=== PATIENT | male | born 1975 | race Caucasian/White ===

== ENCOUNTER 2016-08-23 23:04 | Emergency (ER) | payer OTHER ==
[~2016-08-23 23:04] MED LIST: LORT5TAB PO; SULF-154 PO; Z.0.NO CURRENT MEDS
[2016-08-23 23:10] VITALS: BP 154/60; PULSE 85; RESP 18; TEMP 98.3; O2SAT 97
--- NOTE | 2016-08-23 23:33 | PD ---
HPI Chief Complaint: Alcohol/Drug Intoxication Time Seen by Provider: 23:20 Travel History International Travel<30 days: No Contact w/Intl Traveler<30days: No Traveled to known affect area: No History of Present Illness HPI This is a 41-year-old male who presents under a [place] act initiated by the Police Department. The patient was in a hotel room screening after smoking something. The patient reports that he drinks several beers today and smokes marijuana. He denies any other drug use. He drinks on a daily basis. He denies any injuries. He denies any pain. He has no complaints at this time. FORMERLY [facility], LATER [facility] Past Medical History Medical History: Denies Significant Hx Diminished Hearing: No Past Surgical History Surgical History: No Previous Surgery Social History Alcohol Use: Yes (DAILY) Tobacco Use: Yes (1 PPD) Substance Use: Yes (COUGH SYRUP/WEED) Allergies-Medications (Allergen,Severity, Reaction): Coded Allergies: No Known Allergies (Verified , 03/18/10) Reported Meds & Prescriptions Reported Meds & Active Scripts Active Lortab 5/500 (Acetaminophen/Hydrocodone Bitart) 5 Mg/500 Mg Tab 1 Tab PO Q6HPRN Septra Ds (Trimethoprim/Sulfamethoxazole) Tab 1 Tab PO BID 10 Days Reported No Current Meds (Miscellaneous Medication) Misc Review of Systems Except as stated in HPI: all other systems reviewed are Neg Physical Exam Narrative GENERAL: Well-developed well-nourished male in no acute distress SKIN: Warm and dry. HEAD: Atraumatic. Normocephalic. EYES: Pupils equal and round. No scleral icterus. No injection or drainage. ENT: No nasal bleeding or discharge. Mucous membranes pink and moist. NECK: Trachea midline. No JVD. CARDIOVASCULAR: Regular rate and rhythm. No murmur appreciated. RESPIRATORY: No accessory muscle use. Clear to auscultation. Breath sounds equal bilaterally. GASTROINTESTINAL: Abdomen soft, non-tender, nondistended. MUSCULOSKELETAL: No obvious deformities. NEUROLOGICAL: Awake and alert. No obvious cranial nerve deficits. Motor grossly within normal limits. Mildly slurred speech. Ambulatory around the room with no ataxia. PSYCHIATRIC: Appropriate mood and affect; insight and judgment normal. Data Data Last Documented VS Vital Signs Date Time Temp Pulse Resp B/P Pulse Ox O2 Delivery O2 Flow Rate FiO2 08/23/16 23:12 Room Air 08/23/16 23:10 98.3 85 18 154/60 97 MDM Medical Decision Making Medical Screen Exam Complete: Yes Emergency Medical Condition: Yes Medical Record Reviewed: Yes Differential Diagnosis Polysubstance abuse, alcohol intoxication, acute psychosis Narrative Course 41-year-old male was brought in under a Marchman act for intoxication. He has no medical complaints. He is awake, alert, interactive. He is ambulatory with a steady gait. After being discharged he plans on going home to his apartment. The patient will remain here until he is clinically sober and then he will be discharged. Diagnosis Primary Impression: Polysubstance abuse Referrals: [facility]Other Pt SpecificInfo: No Change to Meds Disposition: DISCHARGE HOME Condition: Stable Uri Oliveira Aug 23, 2016 23:33
== END 2016-08-24 00:51 | disposition home or self-care (01) ==
LOC: NEPA 23:04
DX: F19.10 Other psychoactive substance abuse, uncomplicated (principal); F17.210 Nicotine dependence, cigarettes, uncomplicated; F12.90 Cannabis use, unspecified, uncomplicated; F10.129 Alcohol abuse with intoxication, unspecified
CPT/HCPCS: 99284

== ENCOUNTER 2016-12-09 05:20 | Emergency (ER) | payer SELFPAY ==
[~2016-12-09] VITALS: Ht 177.8 cm; Wt 72.0 kg
[2016-12-09] MEDS ORDERED: SODIUM CHLOR 0.9% 1000 ML INJ 1,000 ML IV ONE (05:30)
[2016-12-09] MEDS ORDERED: TETANUS/DIPHTHERIA TOXOID ADULT 0.5 ML VIAL IM ONE (05:30)
[2016-12-09 05:35] VITALS: BP 133/93; PULSE 71; RESP 18; TEMP 98.4; O2SAT 96
--- NOTE | 2016-12-09 05:42 | PD ---
HPI Chief Complaint: Psychiatric Symptoms Time Seen by Provider: 05:26 Travel History International Travel<30 days: No Contact w/Intl Traveler<30days: No Traveled to known affect area: No History of Present Illness HPI This is a 41-year-old male who has a history of alcohol abuse, who presents today under Walsh act after he reportedly smashed his head against rocks. Patient denies this. There were witnesses who stated to the police that he had made reference that he wanted to hurt himself earlier in the day. This was secondary to his girlfriend leaving him. The patient emphatically denies this at this time. The patient does give history that he's been drinking "a lot". He states his last tetanus shot was 5 years ago however I see no record of this in the medical records. He reports pain in his head. There are no other reports of injury. FORMERLY [facility], [facility] Past Medical History Diminished Hearing: No Social History Alcohol Use: Yes (DAILY) Tobacco Use: Yes (1 PPD) Substance Use: Yes (COUGH SYRUP/WEED) Allergies-Medications (Allergen,Severity, Reaction): Coded Allergies: No Known Allergies (Verified , 12/09/16) Reported Meds & Prescriptions Reported Meds & Active Scripts Active No Active Prescriptions or Reported Medications Review of Systems Except as stated in HPI: all other systems reviewed are Neg Eyes: Positive: Other, No: Diploplia, Blurred Vision HENT: Positive: Headaches (laceration above right eye), No: Lightheadedness, Neck Pain Cardiovascular: No: Chest Pain or Discomfort, Palpitations Respiratory: No: Cough, Shortness of Breath Gastrointestinal: No: Nausea, Vomiting Musculoskeletal: No: Weakness Neurologic: Positive: Headache (laceration above right eye and forehead), Slurred Speech (patient admits to drinking a large amount of alcohol), No: Weakness, Dizziness, Focal Abnormalities, Incontinence Psychiatric: Positive: Substance Abuse, No: Suicidal Ideations (he denies), Homicidal Ideation Physical Exam Narrative GENERAL: Well-nourished, well-developed patient, in no acute distress. The patient does appear to be intoxicated and has a odor, and associated with alcohol to his breath. SKIN: Focused skin assessment warm/dry. HEAD: Normocephalic. The patient has a stellate laceration to his right eyebrow. EYES: No scleral icterus. No injection or drainage. NECK: Supple, trachea midline. Initially in c-collar however he removed it when he arrived. CARDIOVASCULAR: Regular rate and rhythm without murmurs, gallops, or rubs. RESPIRATORY: Breath sounds equal bilaterally. No accessory muscle use. GASTROINTESTINAL: Abdomen soft, non-tender, nondistended. MUSCULOSKELETAL: No cyanosis, or edema. No deformities. NEUROLOGICAL: Awake and intoxicated. Cranial nerves II through XII intact. Motor and sensory grossly within normal limits. Five out of 5 muscle strength in all muscle groups. Slurred speech consistent with history of alcohol use. Data Data Last Documented VS Vital Signs Date Time Temp Pulse Resp B/P Pulse Ox O2 Delivery O2 Flow Rate FiO2 12/09/16 05:35 98.4 71 18 133/93 96 Orders Complete Blood Count With Diff (12/09/16 05:26) Basic Metabolic Panel (Bmp) (12/09/16 05:26) Ct Brain W/O Iv Contrast(Rout) (12/09/16 05:26) Iv Access Insert/Monitor (12/09/16 05:26) Ct Cerv Spine W/O Contrast (12/09/16 05:26) Sodium Chlor 0.9% 1000 Ml Inj (Ns 1000 M (12/09/16 05:30) Psych Screen (12/09/16 05:30) Tetanus/Diphtheria Tox Adult (Tetanus/Di (12/09/16 05:30) Labs Laboratory Tests Test 12/09/16 05:45 White Blood Count 7.5 TH/MM3 Red Blood Count 4.76 MIL/MM3 Hemoglobin 14.8 GM/DL Hematocrit 43.9 % Mean Corpuscular Volume 92.3 FL Mean Corpuscular Hemoglobin 31.2 PG Mean Corpuscular Hemoglobin 33.8 % Concent Red Cell Distribution Width 14.2 % Platelet Count 252 TH/MM3 Mean Platelet Volume 7.4 FL Neutrophils (%) (Auto) 50.9 % Lymphocytes (%) (Auto) 35.1 % Monocytes (%) (Auto) 10.7 % Eosinophils (%) (Auto) 2.3 % Basophils (%) (Auto) 1.0 % Neutrophils # (Auto) 3.8 TH/MM3 Lymphocytes # (Auto) 2.6 TH/MM3 Monocytes # (Auto) 0.8 TH/MM3 Eosinophils # (Auto) 0.2 TH/MM3 Basophils # (Auto) 0.1 TH/MM3 CBC Comment DIFF FINAL Differential Comment Sodium Level 144 MEQ/L Potassium Level 4.0 MEQ/L Chloride Level 111 MEQ/L Carbon Dioxide Level 23.4 MEQ/L Anion Gap 10 MEQ/L Blood Urea Nitrogen 7 MG/DL Creatinine 0.67 MG/DL Estimat Glomerular Filtration 129 ML/MIN Rate Random Glucose 100 MG/DL Calcium Level 8.3 MG/DL MDM Medical Decision Making Medical Screen Exam Complete: Yes Emergency Medical Condition: Yes Differential Diagnosis Right eyebrow laceration versus intracranial hemorrhage versus cervical spine injury versus EtOH intoxication Narrative Course This is a 41-year-old male who presents under [employer] act for reportedly wanting to harm himself. The patient apparently struck his head against rocks. There was report that he had told friends that he wanted to hurt himself secondary to his girlfriend leaving him. The patient has a laceration above his right eyebrow. He has no other injuries. CT brain and cervical spine show no evidence of acute process. Electrolytes are within normal limits. He has been given tetanus immunization. His lack is been repaired by Sandra Quezada DNP. He is currently under Walsh act in a psychiatric screening has been ordered. He appears intoxicated and admits to drinking alcohol. Serum alcohol level and tox screen are pending. He'll be medically cleared by this physician for psychiatric evaluation. Diagnosis Primary Impression: Laceration of right eyebrow Additional Impressions: Polysubstance abuse Walsh act secondary to reported statements of self-harm. medically clear Scripts No Active Prescriptions or Reported Meds Yasir Sandhu MD December 09, 2016 05:42
--- NOTE | 2016-12-09 05:45 | RADRPT ---
EXAM DATE/TIME: 12/09/2016 05:35 [facility] COMPARISON: No previous studies available for comparison. INDICATIONS : Trauma. Unknown head injury. RADIATION DOSE: 35.02 CTDIvol (mGy) MEDICAL HISTORY : None SURGICAL HISTORY : None. ENCOUNTER: Initial ACUITY: 1 day PAIN SCALE: 5/10 LOCATION: cranial TECHNIQUE: Multiple contiguous axial images were obtained of the head. Using automated exposure control and adj ustment of the mA and/or kV according to patient size, radiation dose was kept as low as reasonably a chievable to obtain optimal diagnostic quality images. FINDINGS: CEREBRUM: The ventricles are normal for age. No evidence of midline shift, mass lesion, hemorrhage or acute in farction. No extra-axial fluid collections are seen. POSTERIOR FOSSA: The cerebellum and brainstem are intact. The 4th ventricle is midline. The cerebellopontine angle i s unremarkable. EXTRACRANIAL: The visualized portion of the orbits is intact. Soft swelling tissue over the right forehead. SKULL: The calvaria is intact. No evidence of skull fracture. CONCLUSION: Unremarkable CT scan of the brain Livan Taylor MD on December 09, 2016 at 5:42 Board Certified Radiologist. This report was verified electronically.
[2016-12-09 05:58] LABS: AUTOMATED NEUTROPHIL # 3.8 TH/MM3 (1.8-7.7); BASOPHIL # 0.1 TH/MM3 (0-0.2); EOSINOPHIL # 0.2 TH/MM3 (0-0.4); EOSINOPHIL % 2.3 % (0.0-4.0); HEMATOCRIT 43.9 % (39.0-51.0); HEMO FLAGS DIFF FINAL; LYMPH % 35.1 % (9.0-44.0); LYMPHOCYTE # 2.6 TH/MM3 (1.0-4.8); MEAN CELL VOLUME 92.3 FL (80.0-100.0); MEAN CORPUSCULAR HEMOGLOBIN 31.2 PG (27.0-34.0); MEAN CORPUSCULAR HGB CONC 33.8 % (32.0-36.0); MONO % 10.7 % (0.0-8.0); NEUT % 50.9 % (16.0-70.0); PLATELET COUNT 252 TH/MM3 (150-450); RED BLOOD COUNT 4.76 MIL/MM3 (4.50-5.90); RED CELL DISTRIBUTION WIDTH 14.2 % (11.6-17.2); WHITE BLOOD COUNT 7.5 TH/MM3 (4.0-11.0)
--- NOTE | 2016-12-09 05:58 | RADRPT ---
EXAM DATE/TIME: 12/09/2016 05:35 [facility] COMPARISON: No previous studies available for comparison. INDICATIONS : Trauma. Unknown head injury. Neck pain. RADIATION DOSE: 15.39 CTDIvol (mGy) MEDICAL HISTORY : None SURGICAL HISTORY : None. ENCOUNTER: Initial ACUITY: 1 day PAIN SCALE: 5/10 LOCATION: neck TECHNIQUE: Volumetric scanning of the cervical spine was performed. Multiplanar reconstructions in the sagittal, coronal and oblique axial planes were performed. Using automated exposure control and adjustment o f the mA and/or kV according to patient size, radiation dose was kept as low as reasonably achievable to obtain optimal diagnostic quality images. FINDINGS: VERTEBRAE: Normal vertebral body height. No acute bony fracture. Mild degenerative changes at C5-6. ALIGNMENT: No evidence of subluxation. C2-C3: The bony spinal canal is normal in size. No evidence of disc bulge or herniation. The neural forami na are bilaterally patent. C3-C4: The bony spinal canal is normal in size. No evidence of disc bulge or herniation. The neural forami na are bilaterally patent. C4-C5: The bony spinal canal is normal in size. No evidence of disc bulge or herniation. The neural forami na are bilaterally patent. C5-C6: Diffuse broad-based bulging. The neural foramina appear patent. C6-C7: The bony spinal canal is normal in size. No evidence of disc bulge or herniation. The neural forami na are bilaterally patent. C7-T1: The bony spinal canal is normal in size. No evidence of disc bulge or herniation. The neural forami na are bilaterally patent. CONCLUSION: 1. No acute bony fracture. 2. Diffuse broad-based bulging at C5-6 along with some focal bony degenerative changes. Livan Taylor MD on December 09, 2016 at 5:54 Board Certified Radiologist. This report was verified electronically.
[2016-12-09 06:23] LABS: BICARBONATE 23.4 MEQ/L (21.0-32.0)
--- NOTE | 2016-12-09 06:48 | PD ---
Physical Exam Time Seen by Provider: 06:46 Data Data Last Documented VS Vital Signs Date Time Temp Pulse Resp B/P Pulse Ox O2 Delivery O2 Flow Rate FiO2 12/09/16 05:35 98.4 71 18 133/93 96 Orders Complete Blood Count With Diff (12/09/16 05:26) Basic Metabolic Panel (Bmp) (12/09/16 05:26) Ct Brain W/O Iv Contrast(Rout) (12/09/16 05:26) Iv Access Insert/Monitor (12/09/16 05:26) Ct Cerv Spine W/O Contrast (12/09/16 05:26) Sodium Chlor 0.9% 1000 Ml Inj (Ns 1000 M (12/09/16 05:30) Psych Screen (12/09/16 05:30) Tetanus/Diphtheria Tox Adult (Tetanus/Di (12/09/16 05:30) Drug Screen, Random Urine (12/09/16 06:37) Alcohol (Ethanol) (12/09/16 06:37) Labs Laboratory Tests Test 12/09/16 05:45 White Blood Count 7.5 TH/MM3 Red Blood Count 4.76 MIL/MM3 Hemoglobin 14.8 GM/DL Hematocrit 43.9 % Mean Corpuscular Volume 92.3 FL Mean Corpuscular Hemoglobin 31.2 PG Mean Corpuscular Hemoglobin 33.8 % Concent Red Cell Distribution Width 14.2 % Platelet Count 252 TH/MM3 Mean Platelet Volume 7.4 FL Neutrophils (%) (Auto) 50.9 % Lymphocytes (%) (Auto) 35.1 % Monocytes (%) (Auto) 10.7 % Eosinophils (%) (Auto) 2.3 % Basophils (%) (Auto) 1.0 % Neutrophils # (Auto) 3.8 TH/MM3 Lymphocytes # (Auto) 2.6 TH/MM3 Monocytes # (Auto) 0.8 TH/MM3 Eosinophils # (Auto) 0.2 TH/MM3 Basophils # (Auto) 0.1 TH/MM3 CBC Comment DIFF FINAL Differential Comment Sodium Level 144 MEQ/L Potassium Level 4.0 MEQ/L Chloride Level 111 MEQ/L Carbon Dioxide Level 23.4 MEQ/L Anion Gap 10 MEQ/L Blood Urea Nitrogen 7 MG/DL Creatinine 0.67 MG/DL Estimat Glomerular Filtration 129 ML/MIN Rate Random Glucose 100 MG/DL Calcium Level 8.3 MG/DL [facility] Medical Record Reviewed: Yes Supervised Visit with CIERRA: No Procedures Procedure Narrative LACERATION LOCATION: R eyebrow LENGTH: 3cn stellate NUMBER OF STITCHES/TIMOTHY: 8 sutures REPAIR: The area of the laceration was prepped with Betadine and sterilely draped. The laceration was infiltrated with 1 % xylocaine. The wound was copiously irrigated and explored without evidence of foreign body, tendon injury or neurovascular injury. The wound was closed using 5-0 prolene. This was a single layer repair. A sterile dressing was applied. The patient was advised to keep the dressing clean and dry. Patient tolerated the procedure well. Diagnosis Primary Impression: Laceration of right eyebrow Additional Impressions: Walsh act secondary to reported statements of self-harm. Polysubstance abuse medically clear Scripts No Active Prescriptions or Reported Meds Condition: Sandra Christiansen December 09, 2016 06:48
[2016-12-09 07:14] LABS: AMPHETAMINE, URINE NEG (NEG); BARBITURATES, URINE NEG (NEG); COCAINE, URINE NEG (NEG)
[2016-12-09 11:10] VITALS: BP 146/74
[2016-12-09 11:15] VITALS: BP 111/77; PULSE 76; RESP 18; TEMP 97.9; O2SAT 95
[2016-12-09 14:30] VITALS: BP 138/83; PULSE 93; RESP 20
[2016-12-09 20:35] VITALS: BP 141/82; PULSE 86; RESP 18; O2SAT 96
== END 2016-12-09 20:45 ==
LOC: NEPE 05:20 → NEPJ 20:45
DX: S01.111A Laceration without foreign body of right eyelid and periocular area, initial encounter (principal); F10.10 Alcohol abuse, uncomplicated; F17.210 Nicotine dependence, cigarettes, uncomplicated; F19.10 Other psychoactive substance abuse, uncomplicated; Z23 Encounter for immunization; W22.8XXA Striking against or struck by other objects, initial encounter
CPT/HCPCS: 12013; 70450; 72125; 80048; 80307; 85025; 90471; 90714; 99285; J7030

== ENCOUNTER 2017-01-10 16:15 | Emergency (ER) | payer SELFPAY ==
[~2017-01-10] VITALS: Ht 177.8 cm; Wt 75.0 kg
[2017-01-10 16:39] VITALS: BP 104/57; PULSE 97; RESP 13; TEMP 98.6; O2SAT 97
--- NOTE | 2017-01-10 16:39 | PD ---
HPI Chief Complaint: Hand pain. Time Seen by Provider: 16:35 Travel History International Travel<30 days: No Contact w/Intl Traveler<30days: No History of Present Illness HPI Patient is a 41-year-old male presents emergency department for evaluation of left hand pain. Patient states he thinks he was stung by a puffer fish 2 days ago. Patient states he was drinking heavily yesterday but hasn't had a drop to drink today. Patient states she's feeling very tired. He denies any chest pain shortness of breath abdominal pain nausea vomiting headache or focalized weakness. States symptoms been gradually worsening over the past 2 days. PFSH Past Medical History Diminished Hearing: No Social History Alcohol Use: Yes (DAILY) Tobacco Use: Yes (1 PPD) Substance Use: Yes (ETOH 1/5 vodka + 4-8 beers daily; 1 ppd smoker) Allergies-Medications (Allergen,Severity, Reaction): Coded Allergies: No Known Allergies (Verified , 12/09/16) Reported Meds & Prescriptions Reported Meds & Active Scripts Active No Active Prescriptions or Reported Medications Review of Systems Except as stated in HPI: all other systems reviewed are Neg Physical Exam Narrative GENERAL: Well-developed, well-nourished, unkempt, appears intoxicated. SKIN: Focused skin assessment warm/dry. Clubbing of the digits, no swelling of the hands or forearms, there is a small abrasion over the hand on the right, no bony tenderness. Highly inconsistent with marine life sting. HEAD: Atraumatic. Normocephalic. EYES: Pupils equal and round. No scleral icterus. No injection or drainage. ENT: No nasal bleeding or discharge. Mucous membranes pink and moist. NECK: Trachea midline. No JVD. CARDIOVASCULAR: Regular rate and rhythm. No murmur appreciated. RESPIRATORY: No accessory muscle use. Clear to auscultation. Breath sounds equal bilaterally. GASTROINTESTINAL: Abdomen soft, non-tender, nondistended. Hepatic and splenic margins not palpable. MUSCULOSKELETAL: No obvious deformities. No clubbing. No cyanosis. No edema. NEUROLOGICAL: Awake and alert. No obvious cranial nerve deficits. Motor grossly within normal limits. Normal speech. PSYCHIATRIC: Appropriate mood and affect; insight and judgment normal. Data Data Last Documented VS Vital Signs Date Time Temp Pulse Resp B/P Pulse Ox O2 Delivery O2 Flow Rate FiO2 01/10/17 18:22 89 18 104/63 98 Room Air 01/10/17 16:39 98.6 Orders Complete Blood Count With Diff (01/10/17 16:37) Comprehensive Metabolic Panel (01/10/17 16:37) Drug Screen, Random Urine (01/10/17 16:37) Alcohol (Ethanol) (01/10/17 16:37) Salicylates (Aspirin) (01/10/17 16:37) Tylenol (Acetaminophen) (01/10/17 16:37) Thiamine Inj (Thiamine Inj) (01/10/17 18:15) Calcium Gluconate Inj (Calcium Gluconate (01/10/17 18:30) Electrocardiogram (01/10/17 ) Labs Laboratory Tests Test 01/10/17 01/10/17 16:49 17:25 White Blood Count 14.5 TH/MM3 Red Blood Count 4.95 MIL/MM3 Hemoglobin 14.9 GM/DL Hematocrit 45.5 % Mean Corpuscular Volume 92.0 FL Mean Corpuscular Hemoglobin 30.1 PG Mean Corpuscular Hemoglobin 32.8 % Concent Red Cell Distribution Width 14.4 % Platelet Count 199 TH/MM3 Mean Platelet Volume 8.5 FL Neutrophils (%) (Auto) 90.0 % Lymphocytes (%) (Auto) 5.8 % Monocytes (%) (Auto) 3.9 % Eosinophils (%) (Auto) 0.1 % Basophils (%) (Auto) 0.2 % Neutrophils # (Auto) 13.1 TH/MM3 Lymphocytes # (Auto) 0.8 TH/MM3 Monocytes # (Auto) 0.6 TH/MM3 Eosinophils # (Auto) 0.0 TH/MM3 Basophils # (Auto) 0.0 TH/MM3 CBC Comment DIFF FINAL Differential Comment Sodium Level 141 MEQ/L Potassium Level 4.7 MEQ/L Chloride Level 106 MEQ/L Carbon Dioxide Level 18.7 MEQ/L Anion Gap 16 MEQ/L Blood Urea Nitrogen 17 MG/DL Creatinine 0.95 MG/DL Estimat Glomerular Filtration 87 ML/MIN Rate Random Glucose 170 MG/DL Calcium Level 7.4 MG/DL Protein Corrected Calcium 7.1 MG/DL Total Bilirubin 0.4 MG/DL Aspartate Amino Transf 104 U/L (AST/SGOT) Alanine Aminotransferase 87 U/L (ALT/SGPT) Alkaline Phosphatase 122 U/L Total Protein 7.8 GM/DL Albumin 3.1 GM/DL Salicylates Level 3.9 MG/DL Acetaminophen Level LESS THAN 2.0 MCG/ML Ethyl Alcohol Level 205 MG/DL Urine Opiates Screen NEG Urine Barbiturates Screen NEG Urine Amphetamines Screen NEG Urine Benzodiazepines Screen NEG Urine Cocaine Screen NEG Urine Cannabinoids Screen POS [facility] Medical Decision Making Medical Screen Exam Complete: Yes Emergency Medical Condition: Yes Differential Diagnosis Alcohol intoxication, poor social circumstance, electrolyte abnormality, dehydration. Narrative Course Patient roomed in the emergency department, according to EMS blood sugar was somewhat low 58, he did receive some dextrose orally in route. Patient was also given thiamine in the emergency department, labs return and do show some hypocalcemia and he was given 2 g of calcium gluconate. Patient had an EKG checked by Dr. Hernandez shortly after shift change. Dr. Hernandez follow-up EKG and disposition the patient properly. Diagnosis Primary Impression: Alcohol intoxication Qualified Code: F10.920 - Alcohol intoxication, uncomplicated Scripts No Active Prescriptions or Reported Meds Condition: Stable Davidson No MD Jan 10, 2017 16:39
[2017-01-10 17:38] LABS: AUTOMATED NEUTROPHIL # 13.1 TH/MM3 (1.8-7.7); BASOPHIL % 0.2 % (0.0-2.0); EOSINOPHIL % 0.1 % (0.0-4.0); HEMATOCRIT 45.5 % (39.0-51.0); HEMO FLAGS DIFF FINAL; LYMPH % 5.8 % (9.0-44.0); LYMPHOCYTE # 0.8 TH/MM3 (1.0-4.8); MEAN CORPUSCULAR HEMOGLOBIN 30.1 PG (27.0-34.0); MEAN CORPUSCULAR HGB CONC 32.8 % (32.0-36.0); MONO % 3.9 % (0.0-8.0); PLATELET COUNT 199 TH/MM3 (150-450); RED BLOOD COUNT 4.95 MIL/MM3 (4.50-5.90); RED CELL DISTRIBUTION WIDTH 14.4 % (11.6-17.2); WHITE BLOOD COUNT 14.5 TH/MM3 (4.0-11.0)
[2017-01-10 17:55] LABS: ALKALINE PHOSPHATASE 122 U/L (45-117); ALT (GPT) 87 U/L (12-78); ANION GAP 16 MEQ/L (5-15); AST (GOT) 104 U/L (15-37); BICARBONATE 18.7 MEQ/L (21.0-32.0); BLOOD UREA NITROGEN 17 MG/DL (7-18); CHLORIDE 106 MEQ/L (98-107); GLOMERULAR FILTRATION RATE 87 ML/MIN (>89); SODIUM (NA) 141 MEQ/L (136-145); TOTAL BILIRUBIN ADULT 0.4 MG/DL (0.2-1.0)
[2017-01-10 17:58] LABS: ACETAMINOPHEN LESS THAN 2.0 MCG/ML (10.0-30.0); POTASSIUM 4.7 MEQ/L (3.5-5.1)
[2017-01-10] MEDS ORDERED: THIAMINE INJ 100 MG in SODIUM CHLORIDE 0.9% INJ 100 ML IV ONE (18:15)
[2017-01-10 18:20] LABS: AMPHETAMINE, URINE NEG (NEG); BARBITURATES, URINE NEG (NEG); COCAINE, URINE NEG (NEG)
[2017-01-10 18:22] VITALS: BP 104/63; PULSE 89; RESP 18; O2SAT 98
[2017-01-10] MEDS ORDERED: CALCIUM GLUCONATE INJ 2 GM in DEXTROSE 5% IN WATER 100ML INJ 100 ML IV ONE ×2 (18:30)
[2017-01-10 18:32] LABS: CALCIUM-PROTEIN CORRECTED 7.1 MG/DL (8.5-10.1)
[2017-01-10 19:47] VITALS: BP 117/58; PULSE 88; RESP 18; O2SAT 97
[2017-01-10] MEDS ORDERED: CALC600T4 PO (20:16)
--- NOTE | 2017-01-10 20:37 | PD ---
Data Data Last Documented VS Vital Signs Date Time Temp Pulse Resp B/P Pulse Ox O2 Delivery O2 Flow Rate FiO2 01/10/17 19:47 88 18 117/58 97 Room Air 01/10/17 16:39 98.6 Orders Complete Blood Count With Diff (01/10/17 16:37) Comprehensive Metabolic Panel (01/10/17 16:37) Drug Screen, Random Urine (01/10/17 16:37) Alcohol (Ethanol) (01/10/17 16:37) Salicylates (Aspirin) (01/10/17 16:37) Tylenol (Acetaminophen) (01/10/17 16:37) Thiamine Inj (Thiamine Inj) (01/10/17 18:15) Calcium Gluconate Inj (Calcium Gluconate (01/10/17 18:30) Electrocardiogram (01/10/17 ) Labs Laboratory Tests Test 01/10/17 01/10/17 16:49 17:25 White Blood Count 14.5 TH/MM3 Red Blood Count 4.95 MIL/MM3 Hemoglobin 14.9 GM/DL Hematocrit 45.5 % Mean Corpuscular Volume 92.0 FL Mean Corpuscular Hemoglobin 30.1 PG Mean Corpuscular Hemoglobin 32.8 % Concent Red Cell Distribution Width 14.4 % Platelet Count 199 TH/MM3 Mean Platelet Volume 8.5 FL Neutrophils (%) (Auto) 90.0 % Lymphocytes (%) (Auto) 5.8 % Monocytes (%) (Auto) 3.9 % Eosinophils (%) (Auto) 0.1 % Basophils (%) (Auto) 0.2 % Neutrophils # (Auto) 13.1 TH/MM3 Lymphocytes # (Auto) 0.8 TH/MM3 Monocytes # (Auto) 0.6 TH/MM3 Eosinophils # (Auto) 0.0 TH/MM3 Basophils # (Auto) 0.0 TH/MM3 CBC Comment DIFF FINAL Differential Comment Sodium Level 141 MEQ/L Potassium Level 4.7 MEQ/L Chloride Level 106 MEQ/L Carbon Dioxide Level 18.7 MEQ/L Anion Gap 16 MEQ/L Blood Urea Nitrogen 17 MG/DL Creatinine 0.95 MG/DL Estimat Glomerular Filtration 87 ML/MIN Rate Random Glucose 170 MG/DL Calcium Level 7.4 MG/DL Protein Corrected Calcium 7.1 MG/DL Total Bilirubin 0.4 MG/DL Aspartate Amino Transf 104 U/L (AST/SGOT) Alanine Aminotransferase 87 U/L (ALT/SGPT) Alkaline Phosphatase 122 U/L Total Protein 7.8 GM/DL Albumin 3.1 GM/DL Salicylates Level 3.9 MG/DL Acetaminophen Level LESS THAN 2.0 MCG/ML Ethyl Alcohol Level 205 MG/DL Urine Opiates Screen NEG Urine Barbiturates Screen NEG Urine Amphetamines Screen NEG Urine Benzodiazepines Screen NEG Urine Cocaine Screen NEG Urine Cannabinoids Screen POS MDM Supervised Visit with CIERRA: Yes Narrative Course 41-year-old man, alcoholic, here with a hand injury. Looks well. No evidence of infection. Calcium is low but low. No EKG changes. Safe for outpatient follow-up. Diagnosis Primary Impression: Alcohol intoxication Qualified Code: F10.920 - Alcohol intoxication, uncomplicated Patient Instructions: General Instructions, Alcohol Intoxication (ED) Departure Forms: Tests/Procedures Scripts Calcium Carbonate 1,500 Mg Tab1,500 Mg PO BID 14 Days Ref 0 1,500 mg calcium carbonate (600 mg elemental calcium) Prov:Nick Hernandez MD 01/10/17 Disposition: 01 DISCHARGE HOME Condition: Stable Nick Hernandez MD Jan 10, 2017 20:36
--- NOTE | 2017-01-11 14:56 | EKG ---
Date Performed: 01/10/2017 Time Performed: 19:45:52 PTAGE: 41 years EKG: Sinus rhythm WITH SHORT NE INTERVAL BORDERLINE ECG NO PREVIOUS TRACING DOCTOR: Saulo Aguilar Interpretating Date/Time 01/11/2017 14:55:51
== END 2017-01-10 21:04 | disposition home or self-care (01) ==
LOC: NEPE 16:15
DX: F10.120 Alcohol abuse with intoxication, uncomplicated (principal); F17.200 Nicotine dependence, unspecified, uncomplicated; Y90.7 Blood alcohol level of 200-239 mg/100 ml
CPT/HCPCS: 80053; 80307; 85025; 93005; 96365; 96366; 99284; J0610; J3411

== ENCOUNTER 2017-02-16 04:11 | Emergency (ER) | payer SELFPAY ==
[~2017-02-16] VITALS: Ht 177.8 cm; Wt 75.0 kg
[~2017-02-16 04:11] MED LIST changes: +CALC600T4 PO; -LORT5TAB PO; -SULF-154 PO; -Z.0.NO CURRENT MEDS
[2017-02-16 04:15] VITALS: BP 115/75; PULSE 85; RESP 18; TEMP 98.4; O2SAT 96
[2017-02-16] MEDS ORDERED: LIDOCAINE HCL 1% 50 ML VIAL INFIL ONE (04:15)
[2017-02-16] MEDS ORDERED: TETANUS/DIPHTHERIA TOXOID ADULT 0.5 ML VIAL IM ONE (04:15)
[2017-02-16] MEDS ORDERED: SODIUM CHLORIDE 0.9% FLUSH 10 ML FLUSH IVF PRN (04:15)
[2017-02-16] MEDS ORDERED: AMPICILLIN-SULBACTAM INJ 3 GM VIAL IM ONE (04:15)
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
[2017-02-16 05:04] LABS: AUTOMATED NEUTROPHIL # 7.2 TH/MM3 (1.8-7.7); BASOPHIL % 0.4 % (0.0-2.0); EOSINOPHIL # 0.3 TH/MM3 (0-0.4); EOSINOPHIL % 2.5 % (0.0-4.0); HEMATOCRIT 43.4 % (39.0-51.0); HEMO FLAGS DIFF FINAL; LYMPH % 24.2 % (9.0-44.0); LYMPHOCYTE # 2.6 TH/MM3 (1.0-4.8); MEAN CELL VOLUME 92.4 FL (80.0-100.0); MEAN CORPUSCULAR HEMOGLOBIN 32.4 PG (27.0-34.0); MONO % 6.3 % (0.0-8.0); NEUT % 66.6 % (16.0-70.0); PLATELET COUNT 226 TH/MM3 (150-450); RED CELL DISTRIBUTION WIDTH 14.8 % (11.6-17.2); WHITE BLOOD COUNT 10.8 TH/MM3 (4.0-11.0)
[2017-02-16 05:09] LABS: BICARBONATE 25.5 MEQ/L (21.0-32.0); POTASSIUM 3.7 MEQ/L (3.5-5.1)
[2017-02-16 05:10] LABS: APTT (PATIENT) 24.5 SEC (24.3-30.1); INTERNATIONAL NORMALIZED RATIO 0.9 RATIO; PROTHROMBIN TIME - PATIENT 9.8 SEC (9.8-11.6)
[2017-02-16] MEDS ORDERED: IOHEXOL 350 MG/ML 10 ML VIAL (for RAD DIAG) IV ONE (06:02)
[2017-02-16 06:16] VITALS: BP 115/81; PULSE 89; RESP 16; TEMP 98.7; O2SAT 97
--- NOTE | 2017-02-16 06:20 | RADRPT ---
EXAM DATE/TIME: 02/16/2017 05:02 [facility] COMPARISON: No previous studies available for comparison. INDICATIONS : Rib pain for two weeks. MEDICAL HISTORY : None. SURGICAL HISTORY : None. ENCOUNTER: Initial ACUITY: 2 weeks PAIN SCORE: 7/10 LOCATION: Right Ribs FINDINGS: Multiple views of the right ribs were performed. There is no evidence of displaced fracture. No gema tructive lesions or areas of periosteal thickening are seen. Expiratory view of the chest is negativ e for pneumothorax. The mediastinal structures are midline. CONCLUSION: 1. Negative examination of the ribs. Aron Harris MD on February 16, 2017 at 6:18 Board Certified Radiologist. This report was verified electronically.
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
--- NOTE | 2017-02-16 06:27 | RADRPT ---
EXAM DATE/TIME: 02/16/2017 05:37 This report includes an Addendum and supersedes previous reports for this exam. [facility] COMPARISON: No previous studies available for comparison. INDICATIONS : Right side facial swelling. Evaluate for abscess. IV CONTRAST: 70 cc Omnipaque 350 (iohexol) IV RADIATION DOSE: 12.71 CTDIvol (mGy) MEDICAL HISTORY : None SURGICAL HISTORY : None. ENCOUNTER: Initial ACUITY: 1 week PAIN SCALE: 10/10 LOCATION: Right facial TECHNIQUE: Volumetric scanning of the neck was performed. Using automated exposure control and adjustment of th e mA and/or kV according to patient size, radiation dose was kept as low as reasonably achievable to obtain optimal diagnostic quality images. DICOM format image data is available electronically for r eview and comparison. FINDINGS: NASOPHARYNX: The nasopharyngeal airway has a normal configuration. No mucosal thickening or mass is seen. OROPHARYNX: The intrinsic muscles of the tongue are symmetric. The tonsillar pillars are intact. The prevertebr al soft tissues are not thickened. LARYNX: The supraglottic, glottic, and infraglottic structures are intact. PARAPHARYNGEAL: The parapharyngeal space is intact. SALIVARY GLANDS: The parotid and submandibular glands are intact. LYMPH NODES: No enlarged or necrotic-appearing nodes. THYROID: Homogeneous enhancement without evidence of nodule. BONES: Unremarkable. CONCLUSION: 1. Unremarkable CT scan of the neck. No masses are identified. Aron Harris MD on February 16, 2017 at 6:24 Board Certified Radiologist. This report was verified electronically. ADDENDUM: There is soft tissue swelling over the right side of the mandible and maxilla with subcutaneous edema but no evidence of abscess. Aron Harris MD on February 16, 2017 at 6:37 Board Certified Radiologist. This report was verified electronically.
[2017-02-16] MEDS ORDERED: NAPR500 PO (06:59)
[2017-02-16] MEDS ORDERED: CLIN1CAP5 PO (06:59)
[2017-02-16] MEDS ORDERED: DEXAMETHASONE SOD PHOS 4 MG/ML VIAL IV PUSH ONE (07:00)
[2017-02-16 07:27] VITALS: BP 101/58; PULSE 74; RESP 20; O2SAT 98
[2017-02-16 11:07] VITALS: BP 128/80; PULSE 80; RESP 20; O2SAT 98
== END 2017-02-16 11:17 | disposition home or self-care (01) ==
LOC: NEPD 04:11
DX: S01.81XA Laceration without foreign body of other part of head, initial encounter (principal); S20.211A Contusion of right front wall of thorax, initial encounter; K04.7 Periapical abscess without sinus; K20.9 Esophagitis, unspecified; F10.120 Alcohol abuse with intoxication, uncomplicated; Y04.0XXA Assault by unarmed brawl or fight, initial encounter; M10.9 Gout, unspecified; F17.210 Nicotine dependence, cigarettes, uncomplicated
CPT/HCPCS: 70450; 70486; 70491; 71101; 72125; 80048; 80307; 85025; 85610; 85730; 96372; 96374; 99285; J0295; J1100; Q9967